=== PATIENT | female | born 1980 | race Caucasian/White ===

== ENCOUNTER 2016-07-22 09:48 | Emergency (ER) | payer SELFPAY ==
[2016-07-22 10:10] VITALS: BP 123/76
--- NOTE | 2016-07-22 10:54 | UC ---
hina Hurt Timothy, scribed for Tyson Burk MD on 07/22/16 at 1011 . FLU HPI - HPI Summary HPI Summary: . - History of Current Complaint Stated Complaint: SINUS COMPLAINT, FEVER Time Seen by Provider: 07/22/16 10:05 Hx Obtained From: Patient Hx Last Menstrual Period: 12/12/12 Onset/Duration: Sudden Onset, Lasting Days, Still Present Severity Currently: Moderate Severity Initially: Moderate Pain Intensity: 2 Pain Scale Used: 0-10 Numeric Associated Signs & Symptoms: Positive: Fever, Sore Throat, Nasal Congestion, Vomiting - Allergy/Home Medications Allergies/Adverse Reactions: Allergies Allergy/AdvReac Type Severity Reaction Status Date / Time No Known Allergies Allergy Verified 03/01/15 08:34 PMH/Surg Hx/FS Hx/Imm Hx Endocrine History Of: Denies: Diabetes, Thyroid Disease Cardiovascular History Of: Denies: Cardiac Disorders, Hypertension Respiratory History Of: Denies: COPD, Asthma GI/ History Of: Denies: Ulcer - Surgical History Surgical History: None - Family History Known Family History: Positive: Diabetes Negative: Cardiac Disease, Hypertension - Social History Alcohol Use: Rare Substance Use Type: None Smoking Status (MU): Never Smoked Tobacco Review of Systems Constitutional: Fever Skin: Negative Eyes: Negative ENT: Sore Throat, Nasal Discharge - green Respiratory: Cough Cardiovascular: Negative Gastrointestinal: Vomiting Genitourinary: Negative Motor: Negative Neurovascular: Negative Musculoskeletal: Negative Neurological: Negative Psychological: Negative All Other Systems Reviewed And Are Negative: Yes Physical Exam Triage Information Reviewed: Yes Vital Signs: Initial Vital Signs Temp 98.1 F 07/22/16 10:04 Pulse 82 07/22/16 10:04 Resp 16 07/22/16 10:04 BP 123/76 07/22/16 10:04 Pulse Ox 98 07/22/16 10:04 Vital Signs Reviewed: Yes - Additional Comments VITAL SIGNS: Reviewed. GENERAL: Patient is a well developed and nourished who is lying comfortable in the stretcher. Patient is not in any acute respiratory distress. HEAD AND FACE: Normocephalic. Some tenderness in the right maxillary sinus EYES: PERRLA, EOMI x 2. EARS: Hearing grossly intact. MOUTH: mild pharyngeal erythema NECK: Supple, trachea is midline, no adenopathy, no JVD, no carotid bruit. CHEST: Symmetric, no tenderness at palpation LUNGS: Clear to auscultation bilaterally. No wheezing or crackles. CVS: Regular rate and rhythm, S1 and S2 present, no murmurs or gallops appreciated. ABDOMEN: Soft, non-tender. Bowel sounds are normal. No abdominal abnormal pulsations. EXTREMITIES: FROM in all major joints, no edema, no cyanosis or clubbing. NEURO: Alert and oriented x 3. No acute neurological deficits. Speech is normal and follows commands. SKIN: Dry and warm Flu Course/Dx - Course Course Of Treatment: Sushila Riggins is a 36 yo female presenting to [facility] with fever and 2/10 right sinus pain and productive cough, vomiting, and green nasal discharge for the last 10 days. positive sorethorat, occasional cough secondary to a postnasal drip. She denies any PMHx. LNMP 07/18/16. Rapid strep and influenza tests were negative. I believe the Pt's Sx are secondary to acute sinusitis. The Pt will be given augmentin and will be discharged home to follow up with her primary care physician. She is hemodynamically stable and alert and oriented x3. I discussed all the findings and test results with the patient. Patient was instructed to return to the emergency room immediately if any of the symptoms return or worsens. Patient understands and agrees. Plan of care was discussed with the patient and patient understands and agrees with the plan of care. All questions were answered at patient satisfaction. There were no further complaints or concerns. Patient is alert and oriented x 3. Patient vital signs are stable. Patient is to follow up with primary care physician in the next 2 to 3 days. Patient understands and agrees. - Differential Dx/Diagnosis Differential Diagnosis/HQI/PQRI: Other - Fue, pharyngitis, URI, Sinusitis Provider Diagnoses: sinusitis Discharge - Discharge Plan Condition: Stable Disposition: HOME Prescriptions: Amoxicillin/Clavulanate TAB* [Augmentin TAB 875*] 875 mg PO BID #20 tab Patient Education Materials: Sinusitis (ED) Forms: *Work Release Referrals: No Primary Care Phys,NOPCP [Primary Care Provider] - [facility] [Outside] - 2 Days Additional Instructions: Please follow up with your primary care physician regarding your visit to urgent care today. Return to urgent care or the emergency department with any new or recurring symptoms. The documentation as recorded by the hina frank Timothy accurately reflects the service I personally performed and the decisions made by me, Tyson Burk MD.
== END 2016-07-22 10:49 | disposition home or self-care (01) ==
LOC: UCEAST 09:48
DX: J32.9 Chronic sinusitis, unspecified (principal)
CPT/HCPCS: 87502; 87651; 99212; G0463

== ENCOUNTER 2017-09-07 17:26 | Emergency (ER) | payer SELFPAY ==
[2017-09-07] MEDS ORDERED: Ketorolac INJ* 60 MG/2 ML VIAL IM ONE (18:13)
[2017-09-07 18:41] VITALS: BP 129/83
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
== END 2017-09-07 18:40 | disposition home or self-care (01) ==
LOC: ED 17:26
DX: M62.830 Muscle spasm of back (principal); M54.5 Low back pain
CPT/HCPCS: 99282; J1885